=== PATIENT | female | born 1995 | race Caucasian/White ===

== ENCOUNTER 2019-04-26 11:27 | Emergency (ER) | payer OTHER ==
[2019-04-26 11:38] VITALS: BP 128/69
--- NOTE | 2019-04-26 12:17 | ED Physician Documentation ---
PD HPI MAJOR TRAUMA - Stated complaint Stated Complaint: HEAD/SHOULDER PX - Chief complaint Chief Complaint: Ext Problem - History obtained from History obtained from: Patient - History of Present Illness Mechanism of injury: Other (24-year-old woman has had 3 days of right-sided and central neck pain without trauma. She woke up with it. She has had similar episodes in the past but this is more severe and long-lasting. She tried ibuprofen without relief. There was no specific injury. She denies weakness, numbness, tingling, saddle anesthesia. No headache. No fevers.) Review of Systems Constitutional: denies: Fever, Chills Nose: denies: Rhinorrhea / runny nose, Congestion GI: denies: Nausea, Vomiting, Diarrhea : denies: Now [facility] PD PAST MEDICAL HISTORY - Past Medical History Cardiovascular: Valve disorder Respiratory: Asthma - Past Surgical History Past Surgical History: Yes General: Appendectomy - Present Medications Home Medications: Ambulatory Orders Medication Instructions Recorded Confirmed Albuterol [Ventolin Hfa] 06/13/14 06/13/14 Famotidine [Pepcid] 20 mg PO BID #60 tablet 06/13/14 Metoprolol Tartrate mg PO 06/13/14 06/13/14 Omeprazole [PriLOSEC] 20 mg PO DAILY #30 capsule 06/13/14 Cyclobenzaprine [Flexeril] 10 mg PO TID PRN #20 tablet 04/26/19 Ibuprofen [Motrin] 800 mg PO Q8H PRN #30 tablet 04/26/19 - Allergies Allergies/Adverse Reactions: Allergies Allergy/AdvReac Type Severity Reaction Status Date / Time Sulfa (Sulfonamide Allergy Unknown Verified 04/26/19 11:38 Antibiotics) - Social History Does the pt smoke?: No Smoking Status: Never smoker Does the pt drink ETOH?: No Does the pt have substance abuse?: No - Immunizations Immunizations are current?: Yes - POLST Patient has POLST: No PD ED PE NORMAL - Vitals Vital signs reviewed: Yes - General General: Alert and oriented X 3, No acute distress - Neck Neck: Other (Winces with rotation to the left, extension of the neck is painless, she has mild pain with flexion. Mild tenderness over the right sternocleidomastoid. No midline tenderness.) - Abdomen Abdomen: Non tender - Extremities Extremities: Other (Normal sensation throughout the upper extremities. Normal and equal [employer] strength, thumb extension, interosseous strength, flexion extension at the wrists.) - Neuro Neuro: Alert and oriented X 3, Normal speech Results - Vitals Vitals: Vital Signs - 24 hr 04/26/19 11:35 Temperature 36.6 C Heart Rate 81 Respiratory 15 Rate Blood Pressure 128/69 O2 Saturation 100 Oxygen O2 Source Room air - Rads (name of study) C spine XR Radiology: EMP read contemporaneously (normal) PD MEDICAL DECISION MAKING - ED course ED course: 24-year-old woman with clinical sternocleidomastoid spasm. Will trial muscle relaxers and NSAIDs. Departure - Departure Disposition: 01 Home, Self Care Clinical Impression: Sternocleidomastoid muscle tenderness Condition: Good Record reviewed to determine appropriate education?: Yes Instructions: ED Spasm Neck No Injury Prescriptions: Cyclobenzaprine [Flexeril] 10 mg PO TID PRN #20 tablet PRN Reason: Spasms Ibuprofen [Motrin] 800 mg PO Q8H PRN #30 tablet PRN Reason: PAIN &/OR FEVER Comments: Recheck with your physician in 1 week if not better, do not drink or drive while taking prescription muscle relaxers. Return for new worsening symptoms. Discharge Date/Time: 04/26/19 13:33
--- NOTE | 2019-04-26 13:29 | XRAY Report ---
Reason: neck pain Procedure Date: 04/26/2019 Accession Number: [id number] / [id number] Procedure: XR - Cervical Spine 2 View CPT Code: FULL RESULT: EXAM: CERVICAL SPINE RADIOGRAPHY EXAM DATE: 04/26/2019 12:43 PM. CLINICAL HISTORY: Neck pain. COMPARISONS: None. TECHNIQUE: 3 views. FINDINGS: Alignment: Normal. No spondylolisthesis or scoliosis. Bones: The cervical vertebral bodies and posterior elements are well visualized from the skull base through C7-T1. No fractures or bone lesions. Disks: Normal. Disk heights are maintained. Facets: No degenerative disease. Soft Tissues: Normal. No prevertebral soft tissue swelling. The visualized lung apices are clear. IMPRESSION: Negative cervical spine series. RADIA
== END 2019-04-26 13:33 | disposition home or self-care (01) ==
LOC: ED 11:27
DX: M79.12 Myalgia of auxiliary muscles, head and neck (principal)
CPT/HCPCS: 72040; 99283; 99284

== ENCOUNTER 2021-03-09 10:55 | Emergency (ER) | payer OTHER ==
--- NOTE | 2021-03-09 11:32 | ED Physician Documentation ---
PD HPI URI - Stated complaint Stated Complaint: THROAT/CHEST PX - Chief complaint Chief Complaint: Heent - History obtained from History obtained from: Patient - History of Present Illness Timing - onset: How many days ago (2) Timing duration: Days (2) Timing details: Gradual onset, Still present Associated symptoms: Nasal congestion, Sore throat, Swollen nodes. No: Fever, Chills, Rhinorrhea, Dry cough, NVD Contributing factors: Sick contact ( and son with URI last week. Her daughter currently with sore throat. Others had negative COVID tests at home last week.), Unimmunized Similar symptoms before: Has not had sx before Recently seen: Not recently seen Review of Systems Constitutional: reports: Myalgias. denies: Fever, Chills Throat: reports: Sore throat Respiratory: denies: Cough GI: denies: Abdominal Pain, Vomiting, Diarrhea Skin: denies: Rash Neurologic: denies: Altered mental status, Headache PD PAST MEDICAL HISTORY - Past Medical History Cardiovascular: Valve disorder Respiratory: Asthma - Past Surgical History Past Surgical History: Yes General: Appendectomy - Present Medications Home Medications: Ambulatory Orders Medication Instructions Recorded Confirmed Albuterol [Ventolin Hfa] 06/13/14 06/13/14 Famotidine [Pepcid] 20 mg PO BID #60 tablet 06/13/14 Metoprolol Tartrate mg PO 06/13/14 06/13/14 Omeprazole [PriLOSEC] 20 mg PO DAILY #30 capsule 06/13/14 Cyclobenzaprine [Flexeril] 10 mg PO TID PRN #20 tablet 04/26/19 Ibuprofen [Motrin] 800 mg PO Q8H PRN #30 tablet 04/26/19 - Allergies Allergies/Adverse Reactions: Allergies Allergy/AdvReac Type Severity Reaction Status Date / Time Sulfa (Sulfonamide Allergy Unknown Verified 03/09/21 11:04 Antibiotics) - Social History Does the pt smoke?: No Smoking Status: Never smoker Does the pt drink ETOH?: No Does the pt have substance abuse?: No - Immunizations Immunizations are current?: Yes - POLST Patient has POLST: No PD ED PE NORMAL - Vitals Vital signs reviewed: Yes - General General: Alert and oriented X 3, No acute distress, Well developed/nourished - HEENT HEENT: Ears normal. No: Pharynx benign (mild posterior redness without exudate nor swelling. Minimal anterior adenopathy. ) - Neck Neck: Supple, no meningeal sign, No adenopathy - Cardiac Cardiac: RRR, No murmur - Respiratory Respiratory: Clear bilaterally - Abdomen Abdomen: Soft, Non tender - Derm Derm: Normal color, Warm and dry - Neuro Neuro: Alert and oriented X 3, No motor deficit, Normal speech Results - Vitals Vitals: Vital Signs - 24 hr 03/09/21 11:00 Temperature 36.3 C L Oxygen O2 Source Room air - Labs Labs: Laboratory Tests 03/09/21 12:07 Group A Strep Rapid Negative PD MEDICAL DECISION MAKING - ED course Complexity details: reviewed results, considered differential (likely viral. Patient not desiring COVID test. Can check rapid strep. ), d/w patient Departure - Departure Disposition: 01 Home, Self Care Clinical Impression: Upper respiratory infection Qualifiers: URI type: unspecified URI Qualified Code(s): J06.9 - Acute upper respiratory infection, unspecified Condition: Stable Record reviewed to determine appropriate education?: Yes Comments: Your rapid strep test is negative. The throat culture will result in a couple of days. If there is any evidence for bacterial infection, will call you to add antibiotic. Meanwhile stay well-hydrated. Benadryl liquid can be used 4 to 5 mL every 6 hours for cough congestion or sore throat. Tylenol ibuprofen for pains if needed. I would anticipate illness for several days or so. Discharge Date/Time: 03/09/21 13:26
[2021-03-09 12:52] LABS: RAPID STREP SCREEN Negative (Negative)
== END 2021-03-09 13:26 | disposition home or self-care (01) ==
LOC: ED 10:55
DX: J06.9 Acute upper respiratory infection, unspecified (principal)
CPT/HCPCS: 87070; 87430; 99283